=== PATIENT | male | born 2000 | race African-American/Black ===

== ENCOUNTER 2022-06-21 21:54 | Emergency (ER) | payer MEDICAID, SELFPAY ==
[2022-06-21] MEDS ORDERED: Ondansetron ODT 4 MG TAB ONE (22:33)
== END 2022-06-21 22:46 | disposition home or self-care (01) ==
LOC: NAV ERS 21:54
DX: K29.70 Gastritis, unspecified, without bleeding (principal); F17.290 Nicotine dependence, other tobacco product, uncomplicated
CPT/HCPCS: 99283; Q0162